=== PATIENT | female | born 2000 | race Two or more races ===

== ENCOUNTER → 2024-03-09 | Emergency (ER) | payer OTHER ==
[~2024-03-09] VITALS: Ht 152.4 cm; Wt 54.4 kg
[~2024-03-09] MED LIST: IBUprofen 20 MG/ML BLIST.PACK (5ML) PO STA; KETOROLAC TROMETHAMINE 30 MG VIAL IM STA
== END | disposition home or self-care (01) ==
LOC: ER 10:48
DX: S19.89XA Other specified injuries of other specified part of neck, initial encounter (principal); V43.52XA Car driver injured in collision with other type car in traffic accident, initial encounter; Y93.89 Activity, other specified; Y92.413 State road as the place of occurrence of the external cause; M25.552 Pain in left hip